=== PATIENT | male | born 1965 | race Caucasian/White ===

== ENCOUNTER 2020-10-11 14:22 | Emergency (ER) | payer BC, SELFPAY ==
[2020-10-11 14:36] VITALS: BP 147/92; PULSE 76; RESP 16; TEMP 36.8; O2SAT 97
--- NOTE | 2020-10-11 14:57 | ED.GENADULT ---
HPI - General Adult General Chief complaint: Urogenital-Male Stated complaint: pain urinating Time Seen by Provider: 10/11/20 14:57 Source: patient Mode of arrival: ambulatory Limitations: no limitations History of Present Illness HPI narrative: 55-year-old male patient presents to the [facility] with complaints of left scrotal pain and pain with urination x4 days. Patient denies any fevers, body aches or chills. Patient states he was having some lower abdominal discomfort yesterday. Denies any nausea vomiting or diarrhea. Patient states he does have an enlarged prostate that he states that he is aware of. Patient states he does know that he has genital herpes but denies any other concerns for current STDs at this time. Patient states most of the pain is to the left scrotum and does hurt at times whenever he is urinating. Patient states that at times he feels like he cannot empty his bladder completely. Patient also reports that he feels that the left scrotum is a little red and slightly swollen. Related Data Home Medications Medication Instructions Recorded Confirmed famotidine 20 mg PO BID 10/11/20 10/11/20 solifenacin 5 mg PO DAILY 10/11/20 10/11/20 tadalafil 5 mg PO DAILY 10/11/20 10/11/20 tamsulosin 0.4 mg PO DAILY 10/11/20 10/11/20 telmisartan 40 mg PO DAILY 10/11/20 10/11/20 valacyclovir 500 mg PO DAILY 10/11/20 10/11/20 zolpidem 5 mg PO HS 10/11/20 10/11/20 Allergies Allergy/AdvReac Type Severity Reaction Status Date / Time No Known Drug Allergies Allergy Unknown Verified 10/11/20 14:38 Review of Systems Review of Systems: Narrative: CONSTITUTIONAL: Denies fever, chills, or sweats. EYES: Denies visual changes, redness, or discharge. ENT: Denies rhinorrhea, congestion, sore throat, or otalgia. CARDIOVASCULAR: Denies chest pain, palpitations, or edema. RESPIRATORY: Denies cough or dyspnea. GASTROINTESTINAL: Denies abdominal pain, nausea, vomiting, or diarrhea. GENITOURINARY: Denies dysuria or hematuria. Positive left scrotal pain x4 days SKIN: Denies rash or itching. MUSCULOSKELETAL: Denies back pain, joint pain, or myalgia. NEUROLOGIC: Denies headache, numbness, or weakness. PSYCHIATRIC: Denies anxiety or depression. PMFSH Comments At the time of my signature I agree with nursing past medical history, surgical, social, and family history. There is no relevant family history pertinent to the presenting complaint. Exam Narrative: Exam Narrative: GENERAL: Well-appearing, well-nourished, and in no acute distress. HEAD: Normocephalic, atraumatic. EYES: PERRLA and EOMI. ENT: Nares clear, no rhinorrhea or epistaxis. Mucous membranes moist. NECK: Supple. No lymphadenopathy CHEST: Clear to auscultation. No respiratory distress. HEART: Regular rate and rhythm. No murmur heard. Normal peripheral pulses. ABDOMEN: Soft, flat, nondistended. No guarding, rebound tenderness, or rigid. No pulsatilla masses. Bowel sounds present in all four quadrants. No organomegaly. Negative Escalante?s sign. No periumbicial tenderness. No Supra public tenderness or distension. Good femoral pulses bilaterally. No hernia noted. No scars or surface trauma. : Normal external genitalia, circumcised male. No lesions or rash present. Urinary meat us clear. Foreskin retracts easily. No obvious lesions or lumps palpated to the scrotum. No swelling or erythema present. No warmth present. EXTREMITIES: Normal range of motion. No edema. SKIN: Warm, dry, no rash. NEURO: No focal deficits. Alert and oriented x3. Course Vital Signs Vital signs: Vital Signs Temperature 36.8 C 10/11/20 14:36 Pulse Rate 76 10/11/20 14:36 Respiratory Rate 16 10/11/20 14:36 Blood Pressure 147/92 H 10/11/20 14:36 Pulse Oximetry 97 10/11/20 14:36 Temperature 36.8 C 10/11/20 14:36 Pulse Rate 76 10/11/20 14:36 Respiratory Rate 16 10/11/20 14:36 Blood Pressure 147/92 H 10/11/20 14:36 Pulse Oximetry 97 10/11/20 14:36 Vital signs reviewe
== END 2020-10-11 15:20 | disposition short-term general hospital (02) ==
PROVIDERS: Emergency Provider Nurse Practitioner Family; PCP Internal Medicine
DX: N50.812 Left testicular pain (principal); I10 Essential (primary) hypertension; N40.0 Benign prostatic hyperplasia without lower urinary tract symptoms
CPT/HCPCS: 81003; 87086; 99203; G0463